=== PATIENT | female | born 1965 | race Caucasian/White ===

== ENCOUNTER 2019-07-20 05:57 | Day surgery (SDC) | payer BC ==
[~2019-07-20] VITALS: Ht 157.5 cm; Wt 154.2 kg
[~2019-07-20 05:57] MED LIST: ASPI-555 PO; ATEN25TA PO; FURO20TA4 PO; MULT1CAP32 PO; TOLT2TAB PO; VENL-61 PO
[2019-07-20] MEDS ORDERED: SODIUM CHLORIDE 0.9% 1000ML 1,000 ML IV ONE (06:23)
[2019-07-20 06:28] VITALS: BP 132/70
[2019-07-20] MEDS ORDERED: LIDOCAINE HCL 2% 20ML ONE (07:12)
[2019-07-20] MEDS ORDERED: PROPOFOL 10 MG/ML 20ML VIAL IV ONE (07:12)
[2019-07-20 07:44] VITALS: BP 115/57
[2019-07-20 07:49] VITALS: BP 134/73
[2019-07-20 07:54] VITALS: BP 136/66
[2019-07-20 08:00] VITALS: BP 128/78
--- NOTE | 2019-07-20 08:10 | NUR ---
PT LEFT VIA WHEELCHAIR IN PVT CAR. PT V/S STABLE NO COMPLICATIONS UPON D/C. D/C INSTRUCTIONS GIVEN TO FAMILY
== END 2019-07-20 08:10 | disposition home or self-care (01) ==
LOC: ENDO 05:57 → DAH 05:57 → ENDO 08:10
PROVIDERS: ATTEND Internal Medicine Gastroenterology
DX: R19.7 Diarrhea, unspecified (principal); K62.1 Rectal polyp; K63.5 Polyp of colon; K57.30 Diverticulosis of large intestine without perforation or abscess without bleeding; I10 Essential (primary) hypertension; E66.9 Obesity, unspecified; F41.9 Anxiety disorder, unspecified; F32.9 Major depressive disorder, single episode, unspecified; Z90.710 Acquired absence of both cervix and uterus; Z72.89 Other problems related to lifestyle; Z79.899 Other long term (current) drug therapy; Z79.82 Long term (current) use of aspirin; Z87.891 Personal history of nicotine dependence; Z68.44 Body mass index [BMI] 60.0-69.9, adult; Z82.49 Family history of ischemic heart disease and other diseases of the circulatory system; Z83.3 Family history of diabetes mellitus; Z82.5 Family history of asthma and other chronic lower respiratory diseases
CPT/HCPCS: 45380; 45385; A4215; A4221; A4222; A4223; A4606; A4615; A4663; J2704; J3490; J7030